=== PATIENT | male | born 1960 | race Caucasian/White ===

== ENCOUNTER 2018-06-27 20:57 | Emergency (ER) | payer OTHER ==
[~2018-06-27] VITALS: Ht 165.1 cm; Wt 92.5 kg
[2018-06-27 21:09] VITALS: Ht 165.1 cm; Wt 92.5 kg
[2018-06-27 22:11] VITALS: BP 135/80
== END 2018-06-27 22:11 | disposition home or self-care (01) ==
LOC: ED 20:57
DX: M46.1 Sacroiliitis, not elsewhere classified (principal); I10 Essential (primary) hypertension; E78.00 Pure hypercholesterolemia, unspecified
CPT/HCPCS: J1885

== ENCOUNTER 2019-03-01 15:29 | Emergency (ER) | payer OTHER ==
[~2019-03-01] VITALS: Ht 165.1 cm; Wt 91.2 kg
[2019-03-01 15:33] VITALS: BP 136/83; Ht 165.1 cm; Wt 91.2 kg
== END 2019-03-01 18:18 | disposition home or self-care (01) ==
LOC: ED 15:29
DX: S43.401A Unspecified sprain of right shoulder joint, initial encounter (principal); I10 Essential (primary) hypertension; E78.00 Pure hypercholesterolemia, unspecified; Z86.73 Personal history of transient ischemic attack (TIA), and cerebral infarction without residual deficits; W18.39XA Other fall on same level, initial encounter; Y93.89 Activity, other specified; Y92.89 Other specified places as the place of occurrence of the external cause; Y99.8 Other external cause status